=== PATIENT | female | born 1945 | race Caucasian/White ===

== ENCOUNTER 2019-10-01 09:55 | Emergency (ER) | payer MEDICARE, SELFPAY ==
[2019-10-01 10:00] VITALS: BP 152/81; PULSE 84; RESP 16; TEMP 36.9; O2SAT 99
[2019-10-01 10:12] LABS: Basophils Absolute Auto 0.1 K/mm3 (0.0-0.1); Basophils Percent Auto 0.7 % (0.2-1.2); Eosinophils Absolute Auto 0.1 K/mm3 (0-0.3); Hematocrit 39.7 % (37.0-47.0); Hemoglobin 13.6 g/dL (12.0-15.0); Immature Granulocyte Absolute 0.02 K/mm3 (0.00-0.031); Immature Granulocyte Percent A 0.3 % (0-0.5); Lymphocytes Absolute Auto 1.43 K/mm3 (0.9-3.2); Lymphocytes Percent Auto 20.4 % (18.3-44.2); Mean Corpuscular HGB Conc 34.3 g/dl (32-36); Mean Corpuscular Hemoglobin 31.7 pg (26-34); Mean Corpuscular Volume 92.5 fl (80-100); Mean Platelet Volume 9.2 fl (7.4-10.4); Monocytes Absolute Auto 1.1 K/mm3 (0.1-0.6); Monocytes Percent Auto 15.3 % (2.6-8.5); Neutrophils Absolute Auto 4.3 K/mm3 (1.3-6.7); Neutrophils Percent Auto 61.3 % (45.5-73.1); Platelet Count Result 210 k/mm3 (150-375); Red Blood Count 4.29 M/mm3 (4.2-5.4); Red Cell Distribution Width 12.8 % (11.5-14.5)
[2019-10-01 10:24] LABS: Alanine Aminotransferase 22 U/L (4-35); Albumin Level 4.1 g/dL (3.5-5.1); Alkaline Phosphatase 72 U/L (38-126); Anion Gap 9 mmol/L (8-16); Aspartate Amino Transferase 34 U/L (14-36); Bilirubin,Total 0.3 mg/dL (0.2-1.3); Blood Urea Nitrogen 12 mg/dL (7-17); Calcium 8.9 mg/dL (8.4-10.2); Carbon Dioxide 23 mmol/L (22-30); Chloride 104 mmol/L (98-107); Estimated CRCL calculation 55 ml/min; Estimated Glomerular Filt Rate > 60; Glucose 107 mg/dL (65-105); Potassium 4.5 mmol/L (3.4-5.0); Sodium 136 mmol/L (137-145)
[2019-10-01 10:53] VITALS: BP 139/73; PULSE 84; RESP 18; O2SAT 97
--- NOTE | 2019-10-01 10:53 | PC.NURSE ---
KATHRINE OSMAN AT BEDSIDE WITH MYSELF FOR GUAIAC TEST.
--- NOTE | 2019-10-01 10:53 | PC.NURSE ---
VERBAL ORDER FROM KATHRINE OSMAN TO HOLD ORTHOSTATS.
[2019-10-01 11:44] VITALS: BP 115/61; PULSE 69; RESP 18; O2SAT 98
--- NOTE | 2019-10-01 11:45 | ED.GENADULT ---
HPI - General Adult General Chief complaint: GI Bleed <Rey Perez PA-C - Last Filed: 10/01/19 11:51> Stated complaint: Diarrhea, Dark Stools <Rey Perez PA-C - Last Filed: 10/01/19 11:51> Time Seen by Provider: 10/01/19 10:14 <Rey Perez PA-C - Last Filed: 10/01/19 11:51> Source: patient <Rey Perez PA-C - Last Filed: 10/01/19 11:51> Mode of arrival: ambulatory <Rey Perez PA-C - Last Filed: 10/01/19 11:51> Limitations: no limitations <AIXA Carrillo Last Filed: 10/01/19 11:51> History of Present Illness HPI narrative: Patient is a 74-year-old female who presents to emergency department for evaluation of dark stools that began Friday also with some stomach cramps abdomen eating spinach thought this may be the etiology also took some Pepto-Bismol patient on arrival denies any pain denies any nausea vomiting fever chills or similar occurrence in the past presents in no distress <Rey Perez PA-C - Last Filed: 10/01/19 11:51> Related Data Allergies/adverse reactions: Allergies Allergy/AdvReac Type Severity Reaction Status Date / Time No Known Allergies Allergy Verified 10/01/19 10:10 <AIXA Carrillo Last Filed: 10/01/19 11:51> Review of Systems Review of Systems: All systems reviewed & are unremarkable except as noted in HPI and below <Rey Perez PA-C - Last Filed: 10/01/19 11:51> [facility] Past Medical History Medical History: Medical History Allergic rhinitis Bowel and bladder incontinence Gastroesophageal reflux disease HTN (hypertension) Hyperlipidemia <IAXA Carrillo Last Filed: 10/01/19 11:51> Surgical History Surgical History: Surgical History History of ankle surgery History of tonsillectomy and adenoidectomy History of tubal ligation Status post bilateral foot surgery [place] teeth removed <AIXA Carrillo Last Filed: 10/01/19 11:51> Family History Family History: Family History Father Heart disease Duodenal bulb ulcer Mother CHF (congestive heart failure) <Rey Perez PA-C - Last Filed: 10/01/19 11:51> Social History Social History: Social History Smoking status: Never smoker Second hand tobacco smoke exposure: No Alcohol intake: current Substance use: never Substance use type: does not use Additional living arrangements comments: Patient is living with her son. Gender identity (if verbalized by the patient): Female <Rey Perez PA-C - Last Filed: 10/01/19 11:51> Exam Narrative: Exam Narrative: GENERAL: Well-appearing, well-nourished, and in no acute distress. HEAD: Normocephalic, atraumatic. EYES: PERRLA and EOMI. ENT: Nares clear, no rhinorrhea or epistaxis. Mucous membranes moist. CHEST: Clear to auscultation. No respiratory distress. No wheezes rales or rhonchi HEART: Regular rate and rhythm. No murmur heard. Normal peripheral pulses. ABDOMEN: Soft, nontender, nondistended, guaiac negative EXTREMITIES: Normal range of motion. No edema. SKIN: Warm, dry, no rash. NEURO: No focal deficits. Alert and oriented x3. PSYCH: Normal mood and affect. <Rey Perez PA-C - Last Filed: 10/01/19 11:51> Course Course Emergency Course: Patient in the room in no distress aware of case findings treatment plan and diagnosis agreeing to follow-up as directed with gastroenterology provided with reasons to return otherwise in the room in no distress no high risk changes in the blood work or imaging she was made aware of these and will be discharged home with plan follow-up with her specialist on an outpatient basis <Rey Perez PA-C - Last Filed: 10/01/19 11:51> Vital Signs Vital
[2019-10-01 11:58] VITALS: BP 115/61; PULSE 75; RESP 18; O2SAT 98
== END 2019-10-01 11:59 | disposition home or self-care (01) ==
PROVIDERS: Emergency Provider Emergency Medicine; PCP Family Medicine
DX: R10.9 Unspecified abdominal pain (principal); K21.9 Gastro-esophageal reflux disease without esophagitis; I10 Essential (primary) hypertension; E78.5 Hyperlipidemia, unspecified
CPT/HCPCS: 36415; 80053; 85025; 85610; 85730; 86850; 86900; 86901; 99283

== ENCOUNTER 2019-10-27 01:36 | Outpatient (CLI) | payer MEDICARE, SELFPAY ==
[2019-10-27 19:21] LABS: SARS-CoV-2 RNA PCR Negative
== END 2019-10-27 01:37 | disposition home or self-care (01) ==
LOC: ANHCOVIDDT 01:37
PROVIDERS: PCP Family Medicine; Visit Provider Internal Medicine Gastroenterology
DX: Z01.812 Encounter for preprocedural laboratory examination (principal); Z20.828 Contact with and (suspected) exposure to other viral communicable diseases
CPT/HCPCS: 87635; C9803; U0003

== ENCOUNTER 2019-10-29 01:13 | Day surgery (SDC) | payer MEDICARE, SELFPAY ==
[2019-10-20 09:10] VITALS: BMI 26.3
--- NOTE | 2019-10-29 11:19 | WPDANESEPPF ---
Anes - Initial Pre Proc Eval Procedure: Operation Date: 10/29/19 13:45 Proposed Procedures p Esophagogastroduodenoscopy - Nate Cartagena MD Date/Time: 10/29/19 11:19 Surgeon: Nate Cartagena MD Pre Op Diagnosis: GERD Patient Data Age: 74 Gender: F Height: 1.68 m Weight: 74 kg Allergies Allergy/AdvReac Type Severity Reaction Status Date / Time No Known Allergies Allergy Verified 10/29/19 12:43 Home Medications Medication Instructions Recorded Confirmed Type simvastatin 20 mg tablet 20 mg PO DAILY #90 tablet 04/16/19 10/29/19 Rx pantoprazole 40 mg tablet,delayed 40 mg PO QAM #90 tablet 05/27/19 10/20/19 Rx release lisinopril 20 mg tablet 10 mg PO DAILY #45 tablet 09/01/19 10/29/19 Rx Calcium 600 + D(3) 1,200 mg PO DAILY 10/20/19 10/20/19 History Centrum Silver Women 10/20/19 History Daily Fiber 10/20/19 History [place]-3 Fish Oil 2,000 mg PO DAILY 10/20/19 10/20/19 History Patient hx anesthesia problems: none Family hx anesthesia problems: none PMFSH Past Medical History Medical History (Updated 10/29/19 @ 11:20 by Arvin Huerta MD) Allergic rhinitis Bowel and bladder incontinence Dark stools Gastroesophageal reflux disease HTN (hypertension) Hyperlipidemia Overweight (BMI 25.0-29.9) Surgical History Surgical History History of ankle surgery History of tonsillectomy and adenoidectomy History of tubal ligation Status post bilateral foot surgery [place] teeth removed Social History Social History Smoking status: Former smoker Tobacco type: cigarettes Second hand tobacco smoke exposure: No Additional smoking assessment comments: pt states she smoked freshman year in college Alcohol intake: current Alcohol use details: pt states, wine, maybe once a month Substance use: never Substance use type: does not use Living arrangements: alone Additional living arrangements comments: Patient is living with her son. Gender identity (if verbalized by the patient): Female Spiritual care concerns: No Anes - Eval Final PreProcedure Day of Procedure 10/29/19 11:19 Patient weight: overweight Heart: regular rate and rhythm Lungs: clear to auscultation and normal air movement Airway: Mallampati scale class II Neurological: alert and oriented Last oral intake: >/= 8 hours ASA classification: II Emergent: no Anesthetic plan: proceed Anesthesia type and monitoring: general GIVS Informed Consent: The patient's anesthetic plan and its attendant risks and benefits were discussed with the patient/family/POA. Questions were solicited and answers provided to the satisfaction of the patient/family/POA.
[2019-10-29] MEDS: LACTATED RINGERS 1,000 ML 150 ML IV CONT (13:06)
[2019-10-29 13:07] VITALS: BP 131/67; PULSE 65; RESP 16; TEMP 36.2; O2SAT 100; BMI 25.9
--- NOTE | 2019-10-29 13:36 | WPDHPUPDATE1 ---
History and Physical Update Update Date/Time: 10/29/19 13:36 History and Physical has been reviewed, including an updated exam of the patient. There are NO changes in the patient's condition. Risks, benefits, and alternatives have been discussed and questions answered. Patient agrees to proceed with procedure.
[2019-10-29] MEDS: BENZOCAINE (*SP) 60 ML SPRAY CAN (HURRICAINE) 1 SPRAY MUCOUS MEM (13:49)
[2019-10-29 14:03] VITALS: BP 105/53; PULSE 73; RESP 16; O2SAT 98
[2019-10-29 14:13] VITALS: BP 113/55; PULSE 77; RESP 20; O2SAT 100
[2019-10-29 14:23] VITALS: BP 114/67; PULSE 74; RESP 18; O2SAT 100
== END 2019-10-29 14:57 | disposition home or self-care (01) ==
PROVIDERS: PCP Family Medicine; Visit Provider Internal Medicine Gastroenterology
PROC: 0DJ08ZZ Inspection of Upper Intestinal Tract, Via Natural or Artificial Opening Endoscopic (ICD-10-PCS; CPT 43235; principal; 2019-10-29 13:45)
DX: K21.9 Gastro-esophageal reflux disease without esophagitis (principal); K29.70 Gastritis, unspecified, without bleeding; K31.1 Adult hypertrophic pyloric stenosis; K57.10 Diverticulosis of small intestine without perforation or abscess without bleeding; I10 Essential (primary) hypertension; E78.5 Hyperlipidemia, unspecified
CPT/HCPCS: 43239; 88305; J2704; J7120

== ENCOUNTER → 2020-03-13 11:24 | Outpatient (CLI) | payer MEDICARE, SELFPAY ==
--- NOTE | ~2020-03-13 | XR_ITS ---
EXAMINATION: XR hip LT min 2V DATE: 03/13/2020 11:38 INDICATION: Left hip pain. TECHNIQUE: 2 views of left hip were obtained. COMPARISON: None. FINDINGS: Bone alignment is normal. No fracture. Left hip joint space is normal. Osteitis pubis is no maribel. IMPRESSION: 1. Normal left hip. Reviewed, dictated and finalized at location A. TECHNICIAN IMPRESSION: 1. Normal left hip.
== END ==
PROVIDERS: PCP Physician Assistant; Visit Provider Physician Assistant
DX: M25.552 Pain in left hip (principal)
CPT/HCPCS: 73502

== ENCOUNTER 2020-06-19 09:52 | Emergency (ER) | payer MEDICARE, SELFPAY ==
--- NOTE | ~2020-06-19 | XR_ITS ---
EXAMINATION: XR hand LT min 3V EXAM DATE: 06/19/2020 10:36 INDICATION: Pulmonary surface laceration. TECHNIQUE: Left hand frontal, lateral and oblique projections obtained and reviewed. There is no benoit or study for comparison. FINDINGS: Left metacarpal bones are unremarkable. There is moderate to severe 1st carpometacarpal pr imary osteoarthritis. There are no acute fractures or dislocations identified. There is no subcutane ous gas. The soft tissue is unremarkable. There are no radiopaque foreign bodies. IMPRESSION: 1. Left hand exam without acute osseous findings. 2. 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 Reviewed, dictated and finalized at location B.
[2020-06-19 10:03] VITALS: BP 130/73; PULSE 97; RESP 20; TEMP 37.2; O2SAT 98
--- NOTE | 2020-06-19 11:35 | ED.GENADULT ---
HPI - General Adult General Chief complaint: Wound/Laceration Stated complaint: LAC L HAND Time Seen by Provider: 06/19/20 09:55 Source: patient, family and RN notes reviewed Mode of arrival: ambulatory Limitations: no limitations History of Present Illness HPI narrative: Patient is a 75-year-old female who presents to emergency department for evaluation of left hand laceration that occurred just prior to arrival patient was playing pickle ball when she fell lacerating the palm of the left hand patient is unsure as to her last tetanus patient notes mild aching pain patient denies any other injuries. Patient presents in no distress per private vehicle Related Data Home Medications Medication Instructions Recorded Confirmed Calcium 600 + D(3) 1,200 mg PO DAILY 10/20/19 05/10/20 Daily Fiber 10/20/19 05/10/20 Centrum Silver Women PO BID 03/08/20 05/10/20 [place]-3 Fish Oil 2,000 mg PO DAILY 03/08/20 05/10/20 loperamide 2 mg capsule 2 mg PO Q6H PRN 03/08/20 05/10/20 Allergies Allergy/AdvReac Type Severity Reaction Status Date / Time No Known Allergies Allergy Verified 06/19/20 10:11 Review of Systems Review of Systems: All systems reviewed & are unremarkable except as noted in HPI and below PMFSH Past Medical History Medical History Allergic rhinitis Bowel and bladder incontinence Dark stools Gastroesophageal reflux disease HTN (hypertension) Hyperlipidemia Overweight (BMI 25.0-29.9) Surgical History Surgical History History of ankle surgery History of tonsillectomy and adenoidectomy History of tubal ligation Status post bilateral foot surgery [place] teeth removed Family History Family History Father Heart disease Duodenal bulb ulcer Mother CHF (congestive heart failure) Social History Social History Smoking status: Never smoker Tobacco type: cigarettes Second hand tobacco smoke exposure: No Additional smoking assessment comments: pt states she smoked freshman year in college Alcohol intake: current Substance use: never Substance use type: does not use Additional living arrangements comments: Patient is living with her son. Gender identity (if verbalized by the patient): Female Spiritual care concerns: No Exam Narrative: Exam Narrative: GENERAL: Well-appearing, well-nourished, and in no acute distress. HEAD: Normocephalic, atraumatic. EYES: PERRLA and EOMI. ENT: Nares clear, no rhinorrhea or epistaxis. Mucous membranes moist. EXTREMITIES: Normal range of motion. No edema. Patient with laceration of the left palm measuring 3 cm in length SKIN: Warm, dry, no rash. NEURO: No focal deficits. Alert and oriented x3. Neurovascularly intact. Capillary refill less than 2-second PSYCH: Normal mood and affect. Course Course Emergency Course: Patient had closure of the wound negative x-rays tetanus was up-to-date will follow with her primary care for further evaluation patient felt appropriate for outpatient reevaluation has been given reasons to return Vital Signs Vital signs: Vital Signs Temperature 98.9 F 06/19/20 10:03 Pulse Rate 97 06/19/20 10:03 Respiratory Rate 20 06/19/20 10:03 Blood Pressure 130/73 06/19/20 10:03 Pulse Oximetry 98 06/19/20 10:03 Temperature 98.9 F 06/19/20 10:03 Pulse Rate 97 06/19/20 10:03 Respiratory Rate 20 06/19/20 10:03 Blood Pressure 130/73 06/19/20 10:03 Pulse Oximetry 98 06/19/20 10:03 Procedures Laceration Laceration 1: Date: 06/19/20 Time: 11:37 Site: upper extremity Size (cm): 3 Description: linear Depth: simple, single layer Local Anesthetic: lidocaine 1% Pre-repair: wound explored, irrigated and irrigated extensively
[2020-06-19] MEDS: TETANUS,DIPHTHERIA,AC PERTUSSIS ADULT (0.5 ML) BOOSTRIX IM (11:44)
== END 2020-06-19 11:48 | disposition home or self-care (01) ==
PROVIDERS: Emergency Provider Emergency Medicine; PCP Physician Assistant
DX: S61.412A Laceration without foreign body of left hand, initial encounter (principal); K21.9 Gastro-esophageal reflux disease without esophagitis; I10 Essential (primary) hypertension; E78.5 Hyperlipidemia, unspecified; Z23 Encounter for immunization; E66.3 Overweight; Z87.891 Personal history of nicotine dependence; M19.042 Primary osteoarthritis, left hand
CPT/HCPCS: 12002; 73130; 90471; 90715; 99283

== ENCOUNTER → 2021-10-10 11:47 | Outpatient (CLI) | payer MEDICARE, SELFPAY ==
--- NOTE | ~2021-10-10 | XR_ITS ---
EXAM: XR lumbar spine min 4V DATE: 10/10/2021 12:02 HISTORY: NO INJURY LOW BACK PAIN FOR SEVERAL MONTHS . COMPARISON: None available. FINDINGS: Right-sided stimulator, lead projecting over the left sacrum. 5 nonrib-bearing lumbar-type vertebral bodies. Lumbar scoliosis. Bilateral L5 pars defects. 4 mm anterolisthesis of L4 on L5. Decr eased mineralization with concave endplate deformities. Multilevel disc space narrowing, severe at L5 -S1. Pedicles intact. Multilevel facet arthropathy. IMPRESSION: Grade 1 anterolisthesis of L4 on L5. Bilateral L5 pars defects. Multilevel degenerative d isc disease and facet arthropathy. Reviewed, dictated and finalized at location K. IMPRESSION: Grade 1 anterolisthesis of L4 on L5. Bilateral L5 pars defects. Mul tilevel degenerative disc disease and facet arthropathy.
== END ==
PROVIDERS: PCP Family Medicine; Visit Provider Physician Assistant
DX: M47.27 Other spondylosis with radiculopathy, lumbosacral region (principal); M41.9 Scoliosis, unspecified
CPT/HCPCS: 72110

== ENCOUNTER 2021-12-05 11:00 | Outpatient (RCR) | payer MEDICARE, SELFPAY ==
--- NOTE | 2021-11-16 09:04 | PTOPEVAL1 ---
Assessment and note entered by Arabella Beltran, PT Evaluation Information Assessment Status Evaluation Diagnosis lumbar spondylolisthesis Onset August 2021 Subjective Information gradual increase in back pain, without an injury or trauma to back; since saw the dr, back is better now; previously walked 5 miles/day, thought maybe that was irritating back, so cut back to about 2 miles/day; also had bladder stimulator turned off-? causing her pain, it is placed on the L side and pain in L hip; Reported Pain Level Pain Score Self Report back and L hip pain Additional Pain Score Comments pain range in past week of 0-2/10; increase with bending over to undo dog leash, turn/roll over in bed; decrease pain by changing position, heat, tylenol PM PRN; pain no longer disrupting sleep; sitting is OK, sometimes stiff with walking, but goes away when walking; Assessment PT Clinical Summary Stacey has the diagnosis of lumbar spondylosis. She reports back pain and L hip pain is less. Her history includes neurostimulator for bladder, which is in place, but turned off. Recent xray report states bony changes of her lumbar spine and L hip xray about one year ago, did not have any issues. She reports decreased fitness at [facility] with exercises and yoga this summer. Pain is increased with bending forward to put the dog leash on her dog and rolling over in bed. With the evaluation, she has flat lumbar spine, with weakness of L hip abduction and extension motions and decreased flexibility of L piriformis and B anterior hip/quad muscles. Skilled PT services are indicated for modalities to decrease pain, therapeutic exercises to stretch and strengthen above noted areas and education for home exercise progression and posture/ positoning with home tasks. Plan of Care Interventions Electrical Stimulation,Manual Therapy,Mechanical Traction,Neuro Re-education,Patient/Caregiver Education,Therapeutic Activities,Therapeutic Exercise,Self-Care/Home Management,Ultrasound PT Services Indicated Yes Treatment Frequency and 2x/wk for 3 weeks Duration These treatments will address the objective and functional deficits as defined above. The patient will be advanced safely and appropriatel
--- NOTE | 2021-12-05 11:38 | PTOPDC ---
Assessment and note entered by Arabella Beltran, PT Evaluation Information Assessment Status Discharge Diagnosis lumbar spondylolisthesis Onset August 2021 Subjective Information Stacey reports: more pain at the end of the day; is better and not hurting as much; doing the exercises at home; going to the fitness center for exercises--that helps her; ready for discharge from therapy; Reported Pain Level Pain Score Self Report Additional Pain Score Comments pain range of 0-6/10; throbbing pain in posterior hip, rolling over in bed is better, do not do like she used to do, but able to do it without hurting ; decrease pain with heating pad, stretch by bringing knee up to chest; is not able to identify what increases pain; no issues or pain with putting the dog leash on; Assessment PT Clinical Summary Stacey has received 5 PT sessions. Compared to the initial evaluation: improved with: strength of R and L LE and trunk; she is walking without a limp now; reports doing home tasks without pain increase; flexibility of piriformis/ hip; education completed for HEP and posture/ body mechanics. Her pain rating has increased from 0-2/10 to 0-6/ 10: she reports at the eval time, she was not having very much pain, but now increased pain at the end of the day- able to decrease with heat and stretching. The goals were partially met. Discharge PT services. She is to continue with her home exercises and fitness center classes. Plan of Care PT Services Indicated No
== END 2021-12-05 12:11 | disposition home or self-care (01) ==
LOC: ANHPT 11:00
PROVIDERS: PCP Family Medicine; Visit Provider Physician Assistant
DX: M43.16 Spondylolisthesis, lumbar region (principal)
CPT/HCPCS: 97110; 97112; 97161; 97530

== ENCOUNTER → 2022-06-05 12:38 | Outpatient (CLI) | payer MEDICARE, SELFPAY ==
--- NOTE | ~2022-06-05 | DEXA_ITS ---
Bone Density Report Name: ROSELYN PARK Age: 77 Sex: Female Ethnicity: White Date of : 1945 Indication: postmenopausal; screening for osteoporosis; height loss; prior fracture; Referring Provider: Mary Lou Ahuja Study: Bone densitometry was performed. Exam Date: June 05, 2022 Accession number: [id number] Bone Density: Region BMD T-score Z-score Classification AP Spine (L1, L2, L3) 1.073 0.5 3.1 Normal Femoral Neck (Left) 0.772 -0.7 1.6 Normal Total Hip (Left) 0.965 0.2 2.2 Normal Femoral Neck (Right) 0.718 -1.2 1.1 Osteopenia Total Hip (Right) 0.939 0.0 2.0 Normal Total Hip Mean 0.952 0.1 2.1 Normal World Health Organization criteria for BMD impression classify patients as: Normal (T-score at or above -1.0), Osteopenia (T-score between -1.0 and -2.5), or Osteoporosis (T-score at or below -2.5). 10-year Fracture Risk(1): Major Osteoporotic Fracture 17% Hip Fracture 3.2% Reported Risk Factors: [place] (), Neck BMD=0.718, BMI=29.2, previous fracture (1) FRAX(R) Version 3.08. Fracture probability calculated for an untreated patient. Fracture probability may be lower if the patient has received treatment. Clinical Information Provided by Patient: Has had a low trauma fracture Has used the following medications: Calcium, MTV Patient maximum height was 66.5 Menopause Age: 56 Onset of menses at age 13 Number of children 2 Impression: The patient has low bone mass, based on the Right Femoral Neck T-score. The patient has an estimated ten-year risk of hip fracture of 3.2% and an estimated ten-year risk of major fracture of 17%, based on the WHO FRAX algorithm. The patient has risk factors, including: previous fracture. Discussion: BONE DENSITY IS LOW AT ONE OR MORE SKELETAL SITES. THE PATIENT'S BMD AND CLINICAL RISK FACTORS CONTRIBUTE TO THIS PATIENT'S INCREASED RISK OF FRACTURE. This patient's lowest T-score is low at one or more skeletal sites. It meets the World Health Organization's (WHO) criteria for ?low bone mass? (T-score between -1.0 and -2.5). The patient's 10-year risk of hip fracture as calculated by FRAX exceeds the threshold where pharmacological therapy is recommended by the National Osteoporosis Foundation (NOF). However, all treatment decisions require clinical judgment and consideration of individual patient factors, including patient preferences, comorbidities, previous drug use, risk factors not captured in the FRAX model (e.g., frailty, falls, vitamin D deficiency, increased bone turnover, interval significant decline in bone density) and possible under or overestimation of fracture risk by FRAX. The patient should follow a healthful lifestyle (good nutrition with adequate calcium and vitamin D, and appropriate weight-bearing exercise). Follow-U
== END ==
PROVIDERS: PCP Family Medicine; Visit Provider Physician Assistant
DX: Z78.0 Asymptomatic menopausal state (principal); M85.851 Other specified disorders of bone density and structure, right thigh
CPT/HCPCS: 77080

== ENCOUNTER → 2022-06-05 12:41 | Outpatient (CLI) | payer MEDICARE, SELFPAY ==
--- NOTE | ~2022-06-05 | MM_ITS ---
EXAMINATION: MM screening darinel BI w massiel HISTORY: Screening mammogram, family history of breast cancer in her sister. TECHNIQUE: Craniocaudal and mediolateral oblique 3-D tomosynthesis images were obtained and synthetic 2-D images were generated. CAD analysis was submitted and interpreted. COMPARISON: 12/04/2018, 11/21/2016, 11/20/2015 BREAST PARENCHYMAL COMPOSITION: There are scattered areas of fibroglandular density. FINDINGS: No suspicious mass, calcification, or architectural distortion are identified in either mer[place] ast to suggest malignancy. There has been no suspicious interval change. IMPRESSION: 1. No mammographic evidence of malignancy. 2. Recommend routine screening mammography in one year. BI-RADS Category 1: Negative Reviewed, dictated and finalized at location A.
== END ==
PROVIDERS: PCP Family Medicine; Visit Provider Obstetrics & Gynecology
DX: Z12.31 Encounter for screening mammogram for malignant neoplasm of breast (principal)
CPT/HCPCS: 77063; 77067

== ENCOUNTER 2023-09-15 12:59 | Outpatient (CLI) | payer MEDICARE, SELFPAY ==
[2023-09-15 14:07] LABS: Influenza A QL RT-PCR Negative (Negative); Influenza B QL RT-PCR Negative (Negative); RSV RNA, RT-PCR Negative (Negative); SARS-CoV-2 RNA PCR Positive (Negative)
== END 2023-09-15 13:00 | disposition home or self-care (01) ==
LOC: ANHLAB 13:01
PROVIDERS: PCP Family Medicine; Visit Provider Family Medicine
DX: J06.9 Acute upper respiratory infection, unspecified (principal); Z20.822 Contact with and (suspected) exposure to COVID-19
CPT/HCPCS: 87637

== ENCOUNTER 2024-06-09 14:30 | Outpatient (RCR) | payer MEDICARE, SELFPAY | END 2024-07-19 09:41 | disposition home or self-care (01) | LOC: ANHDMC 14:30 | PROVIDERS: PCP Family Medicine; Visit Provider Student in an Organized Health Care Education/Training Program | DX: E11.9 Type 2 diabetes mellitus without complications (principal); Z71.89 Other specified counseling | CPT/HCPCS: G0108; G0109 ==

== ENCOUNTER 2024-09-02 13:01 | Outpatient (RCR) | payer MEDICARE, SELFPAY | END 2024-11-22 08:44 | disposition home or self-care (01) | LOC: ANHDMC 13:01 | PROVIDERS: PCP Family Medicine; Visit Provider Student in an Organized Health Care Education/Training Program | DX: E11.9 Type 2 diabetes mellitus without complications (principal); Z71.89 Other specified counseling | CPT/HCPCS: G0109 ==

== ENCOUNTER 2024-10-14 08:52 | Outpatient (CLI) | payer MEDICARE, SELFPAY ==
--- NOTE | ~2024-10-14 | US_ITS ---
US arterial ankle brachial ind INDICATION: Essential tremors TECHNIQUE: Segmental pressures and plethysmographic and Doppler waveforms of the brachial and lower extremity arteries were obtained. COMPARISON: None. FINDINGS: Right and left brachial artery pressures of 134 mm Hg and 127 mm Hg, respectively, are concordant (normal difference <= 30 mmHg). The right ankle-brachial index (JAYDON) is 1.24 (normal >= 0.9-1.0). The right great toe-brachial index (TBI) is 0.87 (normal >= 0.60). The left JAYDON is 1.19. The left TBI is 0.84. IMPRESSION: 1. Normal ankle-brachial indices. Reviewed, dictated and finalized at location O.
== END 2024-10-14 08:53 | disposition home or self-care (01) ==
PROVIDERS: PCP Family Medicine; Visit Provider Student in an Organized Health Care Education/Training Program
DX: R09.89 Other specified symptoms and signs involving the circulatory and respiratory systems (principal); E11.9 Type 2 diabetes mellitus without complications; G25.0 Essential tremor
CPT/HCPCS: 93922